=== PATIENT | female | born 1995 | race Caucasian/White ===

== ENCOUNTER → 2017-04-27 | Outpatient (REF) | payer BC | LOC: M LAB REF 15:44 | PROVIDERS: ATTEND Internal Medicine Endocrinology, Diabetes & Metabolism | DX: E06.3 Autoimmune thyroiditis (principal) ==

== ENCOUNTER → 2022-01-18 | Outpatient (REF) | payer BC | LOC: M SFHCWAGY 13:10 | PROVIDERS: ATTEND Specialist | DX: Z12.4 Encounter for screening for malignant neoplasm of cervix (principal) ==

== ENCOUNTER → 2023-12-28 | Outpatient (CLI) | payer BC ==
[2023-12-28 15:04] LABS: HEMATOCRIT 39.4 % (36.0-47.0); HEMOGLOBIN 13.1 g/dl (12.0-15.5); MEAN CORPUSCULAR HEMOGLOBIN 31.5 pg (27.0-33.0); MEAN CORPUSCULAR HGB CONC 33.2 g/dl (32.0-36.5); MEAN CORPUSCULAR VOLUME 94.7 fl (80.0-96.0); PLATELET COUNT, AUTOMATED 208 10^3/uL (150-450); RED BLOOD COUNT 4.16 10^6/uL (4.00-5.40); WHITE BLOOD COUNT 6.9 10^3/uL (4.0-10.0)
[2023-12-28 16:07] LABS: HIV 1&2 SCREEN NEGATIVE (NEGATIVE)
[2023-12-28 16:16] LABS: HEPATITIS C VIRUS ABY INDEX 0.02 INDEX (<0.8)
[2023-12-28 18:07] LABS: GC DNA AMPLIFICATION NEGATIVE (NEGATIVE)
== END ==
LOC: M PLALAB 11:31
PROVIDERS: ATTEND Specialist
DX: Z34.01 Encounter for supervision of normal first pregnancy, first trimester (principal)

== ENCOUNTER → 2024-01-29 | Outpatient (CLI) | payer BC | LOC: M PLALAB 09:56 | PROVIDERS: ATTEND Advanced Practice Midwife | DX: Z34.01 Encounter for supervision of normal first pregnancy, first trimester (principal) ==

== ENCOUNTER → 2024-05-06 | Outpatient (CLI) | payer BC ==
[2024-05-06 15:05] LABS: GLUCOSE CHALLENGE TEST 1 HOUR 76 MG/DL (LESS THAN 140)
[2024-05-06 15:14] LABS: HEMATOCRIT 37.1 % (36.0-47.0); HEMOGLOBIN 12.4 g/dl (12.0-15.5); MEAN CORPUSCULAR HEMOGLOBIN 31.2 pg (27.0-33.0); MEAN CORPUSCULAR HGB CONC 33.4 g/dl (32.0-36.5); MEAN CORPUSCULAR VOLUME 93.2 fl (80.0-96.0); PLATELET COUNT, AUTOMATED 148 10^3/uL (150-450); RED BLOOD COUNT 3.98 10^6/uL (4.00-5.40)
[2024-05-06 15:40] LABS: HIV 1&2 SCREEN NEGATIVE (NEGATIVE)
[2024-05-06 15:48] LABS: HEPATITIS C VIRUS ABY INDEX < 0.02 INDEX (<0.8)
[2024-05-06 16:37] LABS: GC DNA AMPLIFICATION NEGATIVE (NEGATIVE)
== END ==
LOC: M PLALAB 12:00
PROVIDERS: ATTEND Obstetrics & Gynecology
DX: Z34.92 Encounter for supervision of normal pregnancy, unspecified, second trimester (principal); Z3A.00 Weeks of gestation of pregnancy not specified
CPT/HCPCS: 36415; 82950; 85027; 86780; 86803; 86850; 86900; 86901; 87389; 87810; 87850; J2790

== ENCOUNTER → 2024-06-10 | Outpatient (REF) | payer BC | LOC: M PLALAB 15:21 | PROVIDERS: ATTEND Nurse Practitioner Family | DX: R30.0 Dysuria (principal) ==

== ENCOUNTER → 2024-07-01 | Outpatient (CLI) | payer BC ==
[2024-07-01 12:49] LABS: HEMATOCRIT 36.2 % (36.0-47.0); HEMOGLOBIN 12.2 g/dl (12.0-15.5); MEAN CORPUSCULAR HEMOGLOBIN 31.6 pg (27.0-33.0); MEAN CORPUSCULAR HGB CONC 33.7 g/dl (32.0-36.5); MEAN CORPUSCULAR VOLUME 93.8 fl (80.0-96.0); PLATELET COUNT, AUTOMATED 157 10^3/uL (150-450); RED BLOOD COUNT 3.86 10^6/uL (4.00-5.40); WHITE BLOOD COUNT 8.8 10^3/uL (4.0-10.0)
== END ==
LOC: M PLALAB 10:42
PROVIDERS: ATTEND Nurse Practitioner Family
DX: D69.6 Thrombocytopenia, unspecified (principal)

== ENCOUNTER → 2024-07-01 | Outpatient (REF) | payer BC | LOC: M PLALAB 09:41 | PROVIDERS: ATTEND Nurse Practitioner Family | DX: Z53.20 Procedure and treatment not carried out because of patient's decision for unspecified reasons (principal) ==

== ENCOUNTER 2024-08-12 08:11 | Inpatient (IN) | payer BC ==
[2024-08-12] VITALS (15 sets, daily range): BP systolic 105–139; BP diastolic 58–88
[~2024-08-12] VITALS: Ht 160 cm; Wt 95.1 kg
[2024-08-12] MEDS ORDERED: [UNRECOGNIZED DRUG - CODE] PO (08:35)
[2024-08-12] MEDS ORDERED: MAGN300C PO (08:35)
[2024-08-12] MEDS ORDERED: PRENTAB9 PO (08:35)
[2024-08-12] MEDS ORDERED: LEVO137T2 PO (08:35)
[2024-08-12] MEDS ORDERED: HOME MED LIST COMPLETE! XX SCH (08:40)
[2024-08-12] MEDS ORDERED: METHYLERGONOVINE MALEATE 0.2MG/ML 1ML VIAL IM PRN (09:00)
[2024-08-12] MEDS ORDERED: OXYTOCIN INJ 10UNITS/ML 1ML VIAL IM PRN (09:00)
[2024-08-12] MEDS ORDERED: TRANEXAMIC ACID INJection 1,000 MG in NS 100 ML IV PRN (09:00)
[2024-08-12] MEDS ORDERED: CARBOPROST TROMETHAMINE 250 MCG/ML AMP IM PRN (09:00)
[2024-08-12] MEDS ORDERED: OXYTOCIN DRIP 30 UNITS in IV 1 EA IV PRN (09:00)
[2024-08-12] MEDS ORDERED: LIDOCAINE 1% MDV 20ML VIAL INFIL PRN (09:00)
[2024-08-12 09:37] LABS: HEMATOCRIT 37.2 % (36.0-47.0); MEAN CORPUSCULAR HEMOGLOBIN 31.1 pg (27.0-33.0); MEAN CORPUSCULAR HGB CONC 34.9 g/dl (32.0-36.5); PLATELET COUNT, AUTOMATED 169 10^3/uL (150-450); RED BLOOD COUNT 4.18 10^6/uL (4.00-5.40)
[2024-08-12] MEDS: PENICILLIN G POTASSIUM 5 MU IV 5 MU in DEXTROSE 5% (D5W) MINI-BAG PLU 100 ML IV STA (09:41)
[2024-08-12 10:51] LABS: HEPATITIS C VIRUS ABY INDEX < 0.02 INDEX (<0.8)
[2024-08-12] MEDS: miSOPROStol 50MCG 1/2 TABLET PO SCH (11:07)
[2024-08-12] MEDS: PEN G POT 3,000,000 UNIT/50 ML 3,000,000 UNIT in IV 1 EA IV SCH (13:53)
[2024-08-12] MEDS: LR 1,000 ML IV SCH (21:54)
[2024-08-12] MEDS: OXYTOCIN DRIP 30 UNITS in IV 1 EA IV SCH (22:01)
[2024-08-13] VITALS (55 sets, daily range): BP systolic 84–166; BP diastolic 47–84; O2SAT 98–100
[2024-08-13] MEDS: ONDANSETRON 4MG 2ML VIAL IV PRN (02:22)
[2024-08-13] MEDS ORDERED: diphenhydrAMINE 50MG/ML VIAL IV PRN (03:05)
[2024-08-13] MEDS ORDERED: NALOXONE INJ 0.4MG/1ML VIAL IV PRN (03:05)
[2024-08-13] MEDS ORDERED: EPIDURAL/PCA KEYS XX PRN (03:05)
[2024-08-13] MEDS ORDERED: ONDANSETRON 4MG 2ML VIAL IV PRN ×2 (03:05→11:15)
[2024-08-13] MEDS ORDERED: LR 500 ML IV PRN (03:05)
[2024-08-13] MEDS: FENTANYL/ROPIVACAINE/NACL BAG 100 ML EPIDURAL SCH (03:37)
[2024-08-13] MEDS: ePHEDrine SULFATE 25 MG/5 ML(5MG/ML) SYRINGE IVP PRN (05:11)
[2024-08-13] MEDS ORDERED: LEVOTHYROXINE 137MCG TABLET (0.137MG) PO SCH (06:00)
[2024-08-13] MEDS: LEVOTHYROXINE 137MCG TABLET (0.137MG) PO SCH (06:09)
[2024-08-13] MEDS: OXYTOCIN DRIP 30 UNITS in IV 1 EA IV SCH (09:30)
[2024-08-13] MEDS ORDERED: CALCIUM CARBONATE 500 MG CHEW U/D PO PRN (11:15)
[2024-08-13] MEDS ORDERED: METHYLERGONOVINE MALEATE 0.2 MG TAB PO PRN (11:15)
[2024-08-13] MEDS ORDERED: ACETAMINOPHEN 325 MG TAB PO PRN (11:15)
[2024-08-13] MEDS ORDERED: ACETAMINOPHEN 500 MG TAB PO PRN (11:15)
[2024-08-13] MEDS ORDERED: LR 1,000 ML IV SCH (11:15)
[2024-08-13] MEDS ORDERED: RHOGAM 300MCG (1500IU) INJ IM SCH (11:15)
[2024-08-13] MEDS: PRENATAL VITAMINS CHEWABLE TABLET PO SCH (11:34)
[2024-08-13] MEDS: IBUPROFEN 600MG TAB PO PRN (11:34)
[2024-08-13] MEDS: DOCUSATE SODIUM 100MG CAPSULE PO PRN (17:10)
[2024-08-13] MEDS: ANUSOL HC CREAM 30GM TOP PRN (17:10)
[2024-08-13] MEDS: DIBUCAINE 1% OINTMENT 30GM TOP PRN (17:10)
[2024-08-13] MEDS: IBUPROFEN 800 MG TAB PO PRN (18:23)
[2024-08-14 06:00] VITALS: BP 115/76; O2SAT 99
[2024-08-14 18:00] VITALS: BP 116/63; O2SAT 98
[2024-08-15 06:00] VITALS: BP 108/68; O2SAT 98
[2024-08-15] MEDS ORDERED: ACET-683 PO (10:24)
[2024-08-15] MEDS ORDERED: IBUP80TA PO (10:24)
[2024-08-15] MEDS: MEASLES,MUMPS,RUBELLA VACCINE INJ (MMR-II) SC.IMMUN ONE (11:13)
== END 2024-08-15 14:05 | disposition home or self-care (01) | DRG 560 ==
LOC: M LDI 08:11 → M OBS 08-13 12:00
PROVIDERS: ADMIT Advanced Practice Midwife; ATTEND Advanced Practice Midwife
PROC: 3E0P7GC Introduction of Other Therapeutic Substance into Female Reproductive, Via Natural or Artificial Opening (ICD-10-PCS; 2024-08-12)
PROC: 10E0XZZ Delivery of Products of Conception, External Approach (ICD-10-PCS; principal; 2024-08-13)
PROC: 0KQM0ZZ Repair Perineum Muscle, Open Approach (ICD-10-PCS; 2024-08-13)
DX: O42.12 Full-term premature rupture of membranes, onset of labor more than 24 hours following rupture (principal); O48.0 Post-term pregnancy; Z3A.41 41 weeks gestation of pregnancy; Z79.890 Hormone replacement therapy; O99.824 Streptococcus B carrier state complicating childbirth; O70.1 Second degree perineal laceration during delivery; Z37.0 Single live birth